=== PATIENT | male | born 1960 | race Caucasian/White ===

== ENCOUNTER 2021-01-25 06:56 | Day surgery (SDC) | payer BC ==
[~2021-01-25 06:56] MED LIST: Lactated Ringers 1,000 ML IV SCH; Lidocaine 1%/Sod Bicarbonate in NS 8.4% 1 ML Syringe IDERM PRN; Sodium Chloride 0.9% 10 ML Syringe FLUSH PRN
[2021-01-25] MEDS ORDERED: Albuterol 0.083% 2.5 MG/3 ML Neb Soln NEB ONE (07:11)
--- NOTE | 2021-01-25 07:11 | PCM.PREANE ---
Preanesthetic Assessment - Procedure Proposed Procedure: EGD/Colonoscopy - Anesthesia/Transfusion/Family Hx Anesthesia History: Prior Anesthesia Without Reaction Family History of Anesthesia Reaction: No Transfusion History: No Prior Transfusion(s) - Review of Systems General: No Symptoms Pulmonary: Wheezing, Cough Cardiovascular: No Symptoms Gastrointestinal: No Symptoms Neurological: Numbness (feet) Other: Reports: Diabetes (this am 127) - Physical Assessment NPO Status Date: 01/23/21 NPO Status Time: 00:00 Height: 1.91 m Weight: 145 kg ASA Class: 3 Mental Status: Alert & Oriented x3 Airway Class: Mallampati = 1 Dentition: Reports: Normal Dentition Thyro-Mental Finger Breadths: 3 Mouth Opening Finger Breadths: 3 ROM/Head Extension: Limited/Partial Lungs: Normal Respiratory Effort, Decreased Breath Sounds Cardiovascular: Regular Rate, Regular Rhythm - Imaging/EKG Impressions: EKG SR rate 63 - Allergies Allergies/Adverse Reactions: Allergies Allergy/AdvReac Type Severity Reaction Status Date / Time No Known Allergies Allergy Verified 01/23/21 14:33 - Blood Blood Available: No Product(s) Available: None - Anesthesia Plan Beta Kimberlee: Labetalol Med Last Dose Date: 01/25/21 Med Last Dose Time: 07:30 - Acknowledgements Anesthesia Type Planned: MAC Pt an Appropriate Candidate for the Planned Anesthesia: Yes Alternatives and Risks of Anesthesia Discussed w Pt/Guardian: Yes Pt/Guardian Understands and Agrees with Anesthesia Plan: Yes PreAnesthesia Questionnaire HEENT History: Reports: Otitis Media Cardiovascular History: Reports: Cardiomyopathy, High Cholesterol, Hypertension Respiratory History: Reports: Asthma, SOB Gastrointestinal History: Reports: Chronic Constipation, Colon Polyp, GERD, Other (See Below) Other Gastrointestinal History: dysphagia Genitourinary History: Reports: None Musculoskeletal History: Reports: Other (See Below) Other Musculoskeletal History: coccygeal fracture, left ankle and hip contusion Neurological History: Reports: None Psychiatric History: Reports: None Endocrine/Metabolic History: Reports: Diabetes, Type II, Obesity/BMI 30+ Hematologic History: Reports: None Immunologic History: Reports: None Oncologic (Cancer) History: Reports: None - Infectious Disease History Infectious Disease History: Reports: None - Past Surgical History Head Surgeries/Procedures: Reports: None HEENT Surgical History: Reports: Naso-Sinus Surgery, Oral Surgery Cardiovascular Surgical History: Reports: None Respiratory Surgical History: Reports: None GI Surgical History: Reports: Colonoscopy, Other (See Below) Other GI Surgeries/Procedures: abdominal surgery Female Surgical History: Reports: None Male Surgical History: Reports: None Endocrine Surgical History: Reports: None Neurological Surgical History: Reports: None Musculoskeletal Surgical History: Reports: Other (See Below) Other Musculoskeletal Surgeries/Procedures:: right neuroplasty procedure Oncologic Surgical History: Reports: None Dermatological Surgical History: Reports: None - SUBSTANCE USE Tobacco Use Status *Q: Former Tobacco User Tobacco Use Within Last Twelve Months: No Second Hand Smoke Exposure: No Days Per Week of Alcohol Use: 0 Number of Drinks Per Day: 0 Total Drinks Per Week: 0 Recreational Drug Use History: No - HOME MEDS Home Medications: Home Meds Acetaminophen [Tylenol Arthritis] 650 mg PO QID PRN 01/23/21 [History] Albuterol Sulfate [Albuterol Sulfate HFA] 1 - 2 puff INH Q4H PRN 01/23/21 [History] Aspirin 325 mg PO DAILY 01/23/21 [History] Calcium Carbonate [Tums] 500 mg PO QID PRN 01/23/21 [History] Cetirizine HCl [Zyrtec] 10 mg PO DAILY 01/23/21 [History] Fluticasone Propion/Salmeterol [Advair 250-50 Diskus] 2 puff INH BID 01/23/21 [History] Ibuprofen 200 - 600 mg PO Q6H PRN 01/23/21 [History] Magnesium Oxide 400 mg PO DAILY 01/23/21 [History] Nitroglycerin [Nitrostat] 0.4 mg SL ASDIRECTED PRN 01/23/21 [History] Potassium Gluconate [Potassium] 99 mg PO Q48H 01/23/21 [History] Semaglutide [Ozempic] 0.5 mg SQ Q7D 01/23/21 [History] Triamcinolone Acetonide [Nasacort] 1 dose NASBOTH ASDIRECTED PRN 01/23/21 [History] atorvaSTATin [Lipitor] 80 mg PO DAILY 01/23/21 [History] carvediloL [Coreg] 12.5 mg PO BID 01/23/21 [History] lisinopriL [Lisinopril] 5 mg PO DAILY 01/23/21 [History] metFORMIN [Glucophage] 1,000 mg PO BID 01/23/21 [History] - CURRENT (IN HOUSE) MEDS Current Meds: Current Medications Lactated Ringer's (Ringers, Lactated) 1,000 mls @ 125 mls/hr IV ASDIRECTED TAE Stop: 01/25/21 23:00 Lidocaine/Sodium Bicarbonate (Lidocaine 1%/Sod Bicarbonate In Ns 8.4% 1 Ml Syringe) 0.25 ml IDERM ONETIME PRN PRN Reason: Prior to IV Start Stop: 01/25/21 18:00 Sodium Chloride (Sodium Chloride 0.9% 10 Ml Syringe) 10 ml FLUSH ASDIRECTED PRN PRN Reason: Keep Vein Open Stop: 01/25/21 18:00
[2021-01-25] MEDS ORDERED: Labetalol 100 MG/20 ML MDV ONE (07:25)
[2021-01-25] MEDS ORDERED: Midazolam 1 MG/ML 2 ML SDV ONE (07:30)
[2021-01-25] MEDS ORDERED: Propofol 200 MG/20 ML SDV ONE ×3 (07:30→08:12)
[2021-01-25] MEDS ORDERED: fentaNYL 100 MCG/2 ML SDV ONE (07:30)
[2021-01-25] MEDS ORDERED: Lidocaine 1% 4 ML ONE (07:31)
--- NOTE | 2021-01-25 07:46 | PCM.HP.2 ---
H&P History of Present Illness - General Date of Service: 01/25/21 Source of Information: Patient History Limitations: Reports: No Limitations - History of Present Illness Initial Comments - Free Text/Narative: 60 year old male here today for EGD and colonoscopy. He has had some recent dysphagia. He has longstanding GERD. He has a history of adenomatous colon polyps. - Related Data Allergies/Adverse Reactions: Allergies Allergy/AdvReac Type Severity Reaction Status Date / Time No Known Allergies Allergy Verified 01/23/21 14:33 Home Medications: Home Meds Acetaminophen [Tylenol Arthritis] 650 mg PO QID PRN 01/23/21 [History] Albuterol Sulfate [Albuterol Sulfate HFA] 1 - 2 puff INH Q4H PRN 01/23/21 [History] Aspirin 325 mg PO DAILY 01/23/21 [History] Calcium Carbonate [Tums] 500 mg PO QID PRN 01/23/21 [History] Cetirizine HCl [Zyrtec] 10 mg PO DAILY 01/23/21 [History] Fluticasone Propion/Salmeterol [Advair 250-50 Diskus] 2 puff INH BID 01/23/21 [History] Ibuprofen 200 - 600 mg PO Q6H PRN 01/23/21 [History] Magnesium Oxide 400 mg PO DAILY 01/23/21 [History] Nitroglycerin [Nitrostat] 0.4 mg SL ASDIRECTED PRN 01/23/21 [History] Potassium Gluconate [Potassium] 99 mg PO Q48H 01/23/21 [History] Semaglutide [Ozempic] 0.5 mg SQ Q7D 01/23/21 [History] Triamcinolone Acetonide [Nasacort] 1 dose NASBOTH ASDIRECTED PRN 01/23/21 [History] atorvaSTATin [Lipitor] 80 mg PO DAILY 01/23/21 [History] carvediloL [Coreg] 12.5 mg PO BID 01/23/21 [History] lisinopriL [Lisinopril] 5 mg PO DAILY 01/23/21 [History] metFORMIN [Glucophage] 1,000 mg PO BID 01/23/21 [History] Past Medical History HEENT History: Reports: Otitis Media Cardiovascular History: Reports: Cardiomyopathy, High Cholesterol, Hypertension Respiratory History: Reports: Asthma, SOB Gastrointestinal History: Reports: Chronic Constipation, Colon Polyp, GERD, Other (See Below) Other Gastrointestinal History: dysphagia Genitourinary History: Reports: None Musculoskeletal History: Reports: Other (See Below) Other Musculoskeletal History: coccygeal fracture, left ankle and hip contusion Neurological History: Reports: None Psychiatric History: Reports: None Endocrine/Metabolic History: Reports: Diabetes, Type II, Obesity/BMI 30+ Hematologic History: Reports: None Immunologic History: Reports: None Oncologic (Cancer) History: Reports: None - Infectious Disease History Infectious Disease History: Reports: None - Past Surgical History Head Surgeries/Procedures: Reports: None HEENT Surgical History: Reports: Naso-Sinus Surgery, Oral Surgery Cardiovascular Surgical History: Reports: None Respiratory Surgical History: Reports: None GI Surgical History: Reports: Colonoscopy, Other (See Below) Other GI Surgeries/Procedures: abdominal surgery Female Surgical History: Reports: None Male Surgical History: Reports: None Endocrine Surgical History: Reports: None Neurological Surgical History: Reports: None Musculoskeletal Surgical History: Reports: Other (See Below) Other Musculoskeletal Surgeries/Procedures:: right neuroplasty procedure Oncologic Surgical History: Reports: None Dermatological Surgical History: Reports: None Social & Family History - Tobacco Use Tobacco Use Status *Q: Former Tobacco User Used Tobacco, but Quit: Yes Month/Year Tobacco Last Used: 2006 Second Hand Smoke Exposure: No - Caffeine Use Caffeine Use: Reports: Soda - Alcohol Use Days Per Week of Alcohol Use: 0 Number of Drinks Per Day: 0 Total Drinks Per Week: 0 - Recreational Drug Use Recreational Drug Use: No Drug Use in Last 12 Months: No H&P Review of Systems - Review of Systems: Review Of Systems: See Below Exam - Exam Exam: See Below - Vital Signs Weight: 145 kg - Exam General: Alert, Oriented HEENT: Conjunctiva Clear Lungs: Clear to Auscultation, Normal Respiratory Effort Cardiovascular: Regular Rate, Regular Rhythm - Problem List (1) GERD (gastroesophageal reflux disease) SNOMED Code(s): 338461372 ICD Code: K21.9 - GASTRO-ESOPHAGEAL REFLUX DISEASE WITHOUT ESOPHAGITIS Status: Acute Current Visit: Yes (2) Dysphagia SNOMED Code(s): 99090509, 937628357 ICD Code: R13.10 - DYSPHAGIA, UNSPECIFIED Status: Acute Current Visit: Yes (3) Hx of adenomatous colonic polyps SNOMED Code(s): 298861445 ICD Code: Z86.010 - PERSONAL HISTORY OF COLONIC POLYPS Status: Acute Current Visit: Yes Problem List Initiated/Reviewed/Updated: Yes Orders Last 24hrs: Active Orders 24 hr Category Date Time Status Peripheral IV Care [RC] . DIRECTED Care 01/25/21 00:01 Active RT Aerosol Therapy [RC] ASDIRECTED Care 01/25/21 07:12 Active Verify Patient Consent Obtain [RC] ASDIRECTED Care 01/25/21 00:01 Active Lactated Ringers [Ringers, Lactated] 1,000 ml Med 01/25/21 00:01 Active IV ASDIRECTED Lidocaine 1%/Sod Bicarbonate [Buffered Lidocaine 1% in Med 01/25/21 00:01 Active NS 8.4%] 0.25 ml IDERM ONETIME PRN Sodium Chloride 0.9% [Saline Flush] Med 01/25/21 00:01 Active 10 ml FLUSH ASDIRECTED PRN Medication Administration Instruction [OM.PC] Routine Oth 01/25/21 00:01 Ordered Peripheral IV Insertion Adult [OM.PC] Routine Oth 01/25/21 00:01 Ordered Medication Orders Lactated Ringer's (Ringers, Lactated) 1,000 mls @ 125 mls/hr IV ASDIRECTED TAE Stop: 01/25/21 23:00 Lidocaine/Sodium Bicarbonate (Lidocaine 1%/Sod Bicarbonate In Ns 8.4% 1 Ml Syringe) 0.25 ml IDERM ONETIME PRN PRN Reason: Prior to IV Start Stop: 01/25/21 18:00 Sodium Chloride (Sodium Chloride 0.9% 10 Ml Syringe) 10 ml FLUSH ASDIRECTED PRN PRN Reason: Keep Vein Open Stop: 01/25/21 18:00 Assessment/Plan Comment:: Proceed with EGD and colonoscopy. Patient has been made aware of the benefits and risks of EGD and colonoscopy including bleeding, perforation, problem with anesthesia and failure to reach the cecum. He has voiced understanding.
--- NOTE | 2021-01-25 08:42 | PCM.OPNOTE ---
- General Post-Op/Procedure Note Date of Surgery/Procedure: 01/25/21 Operative Procedure(s): Esophagogastroduodenoscopy with cold forceps biopsy, colonoscopy with hot snare polypectomy Findings: Large hiatal hernia, esophagitis, colon polyps Post-Op Diagnosis: Large hiatal hernia, esophagitis, colon polyps Anesthesia Technique: MAC Primary Surgeon: Richard Goode Anesthesia Provider: Santos Akers EBL in mLs: 5 Complications: None Condition: Good Free Text/Narrative:: After the patient gave verbal and written consent he was placed on blood pressure and pulse ox monitoring. He was given IV sedation which he tolerated well. The Olympus gastroscope was inserted in the oropharynx and passed on to the second portion the duodenum. The scope was slowly withdrawn. The gastroscope was then retroflexed and the superior portion of the stomach was visualized.A large hiatal hernia was noted. Mild to moderate esophagitis was noted in the distal esophagus. Forceps biopsies were taken at the gastroesophageal junction. There was good hemostasis. The scope was then removed. He -Tolerated the procedure well. Patient was then prepped for colonoscopy. The Olympus colonoscope was inserted per rectum and advanced to the cecum without difficulty. Ileocecal valve and appendiceal orifice were imaged documenting cecal intubation. The scope was slowly withdrawn the prep was adequate. The scope was withdrawn. The mucosal surfaces were carefully examined. The views were adequate. There was a little bit of liquid residual stool that was aspirated to achieve mucosal views. A 1 cm ascending colon polyp was noted. It was pedunculated. It was removed with hot snare polypectomy with good hemostasis. A smaller 2 mm ascending colon polyp was removed with hot snare polypectomy. There is good hemostasis. The scope was then retroflexed in the rectum straightened out and then removed. The patient tolerated procedure well there are no complications he left the endoscopy suite in good condition. No complications.
--- NOTE | 2021-01-25 08:48 | PCM48HPAN ---
Post Anesthesia Note - EVALUATION WITHIN 48HRS OF ANESTHETIC Vital Signs in Normal Range: Yes Patient Participated in Evaluation: Yes Respiratory Function Stable: Yes Airway Patent: Yes Cardiovascular Function Stable: Yes Hydration Status Stable: Yes Pain Control Satisfactory: Yes Nausea and Vomiting Control Satisfactory: Yes Mental Status Recovered: Yes Vital Signs: Last Vital Signs Temp 36.2 C 01/25/21 07:15 Pulse 90 01/25/21 07:15 Resp 16 01/25/21 07:15 BP 157/100 H 01/25/21 07:15 Pulse Ox 94 L 01/25/21 07:15 - COMMENTS/OBSERVATIONS Free Text/Narrative:: no anesthesia complications noted
== END 2021-01-25 09:55 | disposition home or self-care (01) ==
LOC: JD.SDS 06:56
PROVIDERS: ATTEND Family Medicine
DX: Z12.11 Encounter for screening for malignant neoplasm of colon (principal); D12.2 Benign neoplasm of ascending colon; K21.00 Gastro-esophageal reflux disease with esophagitis, without bleeding; K44.9 Diaphragmatic hernia without obstruction or gangrene; E11.9 Type 2 diabetes mellitus without complications; E78.00 Pure hypercholesterolemia, unspecified; I10 Essential (primary) hypertension; J45.909 Unspecified asthma, uncomplicated; E66.9 Obesity, unspecified; Z68.41 Body mass index [BMI] 40.0-44.9, adult; Z79.82 Long term (current) use of aspirin; Z79.899 Other long term (current) drug therapy; Z86.010 Personal history of colon polyps; Z87.891 Personal history of nicotine dependence; Z98.890 Other specified postprocedural states
CPT/HCPCS: 43239; 45385; J2250; J2704; J3010; J3490; J7120; 00813

== ENCOUNTER 2021-11-08 09:06 | Emergency (ER) | payer BC | END 2021-11-08 14:30 | disposition home or self-care (01) | LOC: JD.ED 09:06 | DX: S81.802A Unspecified open wound, left lower leg, initial encounter (principal); E78.00 Pure hypercholesterolemia, unspecified; I10 Essential (primary) hypertension; K21.9 Gastro-esophageal reflux disease without esophagitis; E11.9 Type 2 diabetes mellitus without complications; E66.9 Obesity, unspecified; Z79.82 Long term (current) use of aspirin; Z79.899 Other long term (current) drug therapy; Z79.84 Long term (current) use of oral hypoglycemic drugs; Z87.891 Personal history of nicotine dependence; Z68.41 Body mass index [BMI] 40.0-44.9, adult | CPT/HCPCS: 36415; 73700-26-LT; 73700-LT; 80053; 85025; 99284-25 ==